=== PATIENT | male | born 1965 | race Caucasian/White ===

== ENCOUNTER 2018-04-28 22:21 | Observation (INO) | payer OTHER ==
[2018-04-28] MEDS ORDERED: IBUPROFEN 600 MG TAB PO STA (23:13)
[2018-04-28] MEDS ORDERED: PIPERACILLIN-TAZOBACTAM 3.375 GM in SODIUM CHLORIDE 0.9% 100 ML IVPB STA (23:13)
[2018-04-28] MEDS ORDERED: ACETAMINOPHEN TAB 500 MG TAB PO STA (23:13)
--- NOTE | 2018-04-28 23:56 | ED ---
Skin/Abscess/FB HPI - General Source: patient, RN notes reviewed, old records reviewed Mode of arrival: ambulatory Limitations: no limitations <Rosaura Espinal - Last Filed: 04/29/18 02:24> <Lauren Tsai - Last Filed: 04/29/18 03:35> - General Chief complaint: Skin/Abscess/Foreign Body Stated complaint: bug bite on leg, fever Time Seen by Provider: 04/28/18 23:00 - History of Present Illness Initial comments: Patient is a 53 year old male presents to ED with CC of 4 days left leg pain, swelling and fever. Patient reports that he started noticed this area on Thursday. He states that he thought it was initially complaining attempt to squeeze it. Some pus was removed. He states that over the past few days he's had fevers and felt very fatigued. He states that he's noticed increased swelling. No history of MRSA. He is here with his fiance with a similar lesion on her groin as well. Patient reports that he has a history of chronic pain. (Rosaura Espinal) - Related Data Home Medications Medication Instructions Recorded Confirmed Acetaminophen Tab [Tylenol Tab] 1,000 mg PO Q6HR PRN 04/28/18 04/28/18 HYDROcodone/APAP 7.5-325MG [[place] 1 tab PO TID PRN 04/28/18 04/28/18 7.5-325] Omeprazole 20 mg PO DAILY 04/28/18 04/28/18 Allergies Allergy/AdvReac Type Severity Reaction Status Date / Time No Known Allergies Allergy Verified 04/28/18 22:56 Review of Systems ROS Other: All systems not noted in ROS Statement are negative. <Rosaura Espinal - Last Filed: 04/29/18 02:24> ROS Other: All systems not noted in ROS Statement are negative. <Lauren Tsai P - Last Filed: 04/29/18 03:35> ROS Statement: Those systems with pertinent positive or pertinent negative responses have been documented in the HPI. 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 History of Any Multi-Drug Resistant Organisms: None Reported Past Surgical History: Orthopedic Surgery Additional Past Surgical History / Comment(s): bilateal shoulder; right knee Past Psychological History: No Psychological Hx Reported Smoking Status: Current every day smoker Past Alcohol Use History: Rare Past Drug Use History: None Reported <Rosaura Espianl - Last Filed: 04/29/18 02:24> General Exam Limitations: no limitations General appearance: alert, in no apparent distress Head exam: Present: atraumatic, normocephalic, normal inspection Eye exam: Present: normal appearance, PERRL, EOMI. Absent: scleral icterus, conjunctival injection, periorbital swelling ENT exam: Present: normal exam, mucous membranes moist Neck exam: Present: normal inspection. Absent: tenderness, meningismus, lymphadenopathy Respiratory exam: Present: normal lung sounds bilaterally. Absent: respiratory distress, wheezes, rales, rhonchi, stridor Cardiovascular Exam: Present: regular rate, normal rhythm, normal heart sounds. Absent: systolic murmur, diastolic murmur, rubs, gallop, clicks GI/Abdominal exam: Present: soft, normal bowel sounds. Absent: distended, tenderness, guarding, rebound, rigid Extremities exam: Present: full ROM, normal capillary refill. Absent: normal inspection, tenderness, pedal edema, joint swelling, calf tenderness Left Upper Leg exam: Present: tenderness, swelling (erythema, abscess over medial thigh. ), ecchymosis (Patient has bruising over the medial thigh extending to the knee.), erythema (10 cm x 15 cm area of cellulitis over the upper thigh.). Absent: normal inspection Knee exam: Present: normal inspection, full ROM Back exam: Present: normal inspection <Rosaura Espinal - Last Filed: 04/29/18 02:24> <Lauren Tsai - Last Filed: 04/29/18 03:35> - General Exam Comments Initial Comments: 53-year-old male. Alert and oriented. (Rosaura Espinal) Vital Signs 04/28/18 04/29/18 04/29/18 22:44 01:27 02:30 Temperature 99.2 F 100.5 F H Pulse Rate 118 H 111 H 97 Respiratory 17 18 18 Rate Blood Pressure 128/87 115/74 123/70 O2 Sat by Pulse 96 96 98 Oximetry Medical Decision Making - Lab Data Result diagrams: 04/29/18 00:04 04/29/18 00:04 - Radiology Data Radiology results: report reviewed <Rosaura Espinal - Last Filed: 04/29/18 02:24> - Lab Data Result diagrams: 04/29/18 00:04 04/29/18 00:04 <Lauren Tsai - Last Filed: 04/29/18 03:35> - Medical Decision Making Patient is a 53-year-old male, presents today with an abscess over the right anterior thigh. Has been there for the past 4 days. He has an area of ecchymosis extending into the lower thigh towards the knee. He has a 10 cm x 15 cm area of cellulitis with a central abscess. I did complete a Doppler ultrasound which was negative for DVT due to the extensive ecchymosis of 5. Patient white blood cell count was elevated at 18,000 with left shift of 14, 000. He has no history of MRSA. His fiance is being treated for a similar skin infection at this time. Patient was hesitant about admission due to having to miss his work. Patient eventually did agree for admission. Incision and drainage was completed. Patient started on Zosyn and vancomycin. Continue to have fever 100.5 despite 2 L bolus and Tylenol. Patient does meet sepsis criteria. (Rosaura Espinal) I personally saw and examined the patient. I reviewed and agree with the mid- level provider findings including all diagnostic interpretations and treatment plans as written unless otherwise stated. Patient care was discussed with admitting physician Dr. Pozo who agrees to admission for IV antibiotics. (Lauren Tsai) - Lab Data Lab Results 04/29/18 04/29/18 04/29/18 Range/Units 00:04 00:04 00:04 WBC 18.2 H (3.8-10.6) k/uL RBC 4.78 (4.30-5.90) m/uL Hgb 14.6 (13.0-17.5) gm/dL Hct 44.3 (39.0-53.0) % MCV 92.6 (80.0-100.0) fL MCH 30.5 (25.0-35.0) pg MCHC 32.9 (31.0-37.0) g/dL RDW 12.9 (11.5-15.5) % Plt Count 196 (150-450) k/uL Neutrophils % 79 % Lymphocytes % 9 % Monocytes % 5 % Eosinophils % 5 % Basophils % 0 % Neutrophils # 14.4 H (1.3-7.7) k/uL Lymphocytes # 1.7 (1.0-4.8) k/uL Monocytes # 0.9 (0-1.0) k/uL Eosinophils # 0.9 H (0-0.7) k/uL Basophils # 0.0 (0-0.2) k/uL PT (9.0-12.0) sec INR (<1.2) APTT (22.0-30.0) sec Sodium 137 (137-145) mmol/L Potassium 4.5 (3.5-5.1) mmol/L Chloride 104 (98-107) mmol/L Carbon Dioxide 24 (22-30) mmol/L Anion Gap 9 mmol/L BUN 16 (9-20) mg/dL Creatinine 0.91 (0.66-1.25) mg/dL Est GFR (CKD-EPI)AfAm >90 (>60 ml/min/1.73 sqM) Est GFR (CKD-EPI)NonAf >90 (>60 ml/min/1.73 sqM) Glucose 114 H (74-99) mg/dL Plasma Lactic Acid Josue 1.3 (0.7-2.0) mmol/L Calcium 9.1 (8.4-10.2) mg/dL Total Bilirubin 0.4 (0.2-1.3) mg/dL AST 21 (17-59) U/L ALT 28 (21-72) U/L Alkaline Phosphatase 72 (38-126) U/L Total Protein 6.5 (6.3-8.2) g/dL Albumin 3.6 (3.5-5.0) g/dL Urine Color Urine Appearance (Clear) Urine pH (5.0-8.0) Ur Specific [place] (1.001-1.035) Urine Protein (Negative) Urine Glucose (UA) (Negative) Urine Ketones (Negative) Urine Blood (Negative) Urine Nitrite (Negative) Urine Bilirubin (Negative) Urine Urobilinogen (<2.0) mg/dL Ur Leukocyte Esterase (Negative) 04/29/18 04/29/18 Range/Units 00:04 00:04 WBC (3.8-10.6) k/uL RBC (4.30-5.90) m/uL Hgb (13.0-17.5) gm/dL Hct (39.0-53.0) % MCV (80.0-100.0) fL MCH (25.0-35.0) pg MCHC (31.0-37.0) g/dL RDW (11.5-15.5) % Plt Count (150-450) k/uL Neutrophils % % Lymphocytes % % Monocytes % % Eosinophils % % Basophils % % Neutrophils # (1.3-7.7) k/uL Lymphocytes # (1.0-4.8) k/uL Monocytes # (0-1.0) k/uL Eosinophils # (0-0.7) k/uL Basophils # (0-0.2) k/uL PT 9.8 (9.0-12.0) sec INR 0.9 (<1.2) APTT 24.3 (22.0-30.0) sec Sodium (137-145) mmol/L Potassium (3.5-5.1) mmol/L Chloride (98-107) mmol/L Carbon Dioxide (22-30) mmol/L Anion Gap mmol/L BUN (9-20) mg/dL Creatinine (0.66-1.25) mg/dL Est GFR (CKD-EPI)AfAm (>60 ml/min/1.73 sqM) Est GFR (CKD-EPI)NonAf (>60 ml/min/1.73 sqM) Glucose (74-99) mg/dL Plasma Lactic Acid Josue (0.7-2.0) mmol/L Calcium (8.4-10.2) mg/dL Total Bilirubin (0.2-1.3) mg/dL AST (17-59) U/L ALT (21-72) U/L Alkaline Phosphatase (38-126) U/L Total Protein (6.3-8.2) g/dL Albumin (3.5-5.0) g/dL Urine Color Yellow Urine Appearance Clear (Clear) Urine pH 6.0 (5.0-8.0) Ur Specific [place] 1.023 (1.001-1.035) Urine Protein Trace H (Negative) Urine Glucose (UA) Negative (Negative) Urine Ketones Negative (Negative) Urine Blood Negative (Negative) Urine Nitrite Negative (Negative) Urine Bilirubin Negative (Negative) Urine Urobilinogen 2.0 (<2.0) mg/dL Ur Leukocyte Esterase Negative (Negative) - Radiology Data No evidence of DVT in the left leg. There is an elongated fluid collection with subcutaneous upper thigh measuring 4 x 1 cm that could be abscess. ( Rosaura Espinal) Disposition Is patient prescribed a controlled substance at d/c from ED?: No Time of Disposition: 02:28 <Rosaura Espinal - Last Filed: 04/29/18 02:24> <Lauren Tsai - Last Filed: 04/29/18 03:35> Clinical Impression: Sepsis, Cellulitis of right leg Disposition: ADMITTED IP TO THIS HOSP Condition: Good Addendum entered and electronically signed by Rosaura Espinal PA-C 04/29/18 02 :29: Addendum to clinical impression. Patient has cellulitis of the left leg.
[2018-04-29] MEDS: SODIUM CHLORIDE 0.9% 500 ML 500 ML IV SCH ×2 (00:01→00:02)
[2018-04-29 00:42] LABS: Basophils % (A) 0 %; Eosinophils # (A) 0.9 k/uL (0-0.7); Eosinophils % (A) 5 %; HCT 44.3 % (39.0-53.0); HGB 14.6 gm/dL (13.0-17.5); Lymphocytes # (A) 1.7 k/uL (1.0-4.8); Lymphocytes % (A) 9 %; MCH 30.5 pg (25.0-35.0); MCHC 32.9 g/dL (31.0-37.0); MCV 92.6 fL (80.0-100.0); Mean Platelet Volume 7.2; Monocytes # (A) 0.9 k/uL (0-1.0); Monocytes % (A) 5 %; Neutrophils # (A) 14.4 k/uL (1.3-7.7); Neutrophils % (A) 79 %; Platelet Count 196 k/uL (150-450); RBC 4.78 m/uL (4.30-5.90); RDW 12.9 % (11.5-15.5); WBC 18.2 k/uL (3.8-10.6)
[2018-04-29 00:43] LABS: Appearance,Urine Clear (Clear); Bilirubin,Urine Negative (Negative); Blood,Urine Negative (Negative); Color,Urine Yellow; Glucose,Urine (UA) Negative (Negative); Ketones,Urine Negative (Negative); Leukocyte Esterase,Urine Negative (Negative); Nitrite,Urine Negative (Negative); Protein,Urine Trace (Negative); Specific Gravity,Urine 1.023 (1.001-1.035)
[2018-04-29 00:47] LABS: INR 0.9 (<1.2); Partial Thromboplastin Time 24.3 sec (22.0-30.0); Prothrombin Time 9.8 sec (9.0-12.0)
--- NOTE | 2018-04-29 00:57 | US ---
EXAMINATION TYPE: US venous doppler duplex LE LT DATE OF EXAM: 04/29/2018 12:46 AM COMPARISON: NONE CLINICAL HISTORY: Pain. Pain and redness. SIDE PERFORMED: Left TECHNIQUE: The lower extremity deep venous system is examined utilizing real time linear array sonog kuldeep with graded compression, doppler sonography and color-flow sonography. VESSELS IMAGED: External Iliac Vein (EIV) Common Femoral Vein Deep Femoral Vein Greater Saphenous Vein * Femoral Vein Popliteal Vein Small Saphenous Vein * Proximal Calf Veins (* superficial vessels) Left Leg: Negative for DVT No evidence of DVT left leg. Complex fluid pocket in area of redness high thigh. IMPRESSION: There is no evidence of deep venous thrombosis in the right leg. There is elongated complex fluid collection in the subcutaneous upper thigh that measures 4 x 1 cm th at could relate to abscess.
[2018-04-29 00:58] LABS: Albumin 3.6 g/dL (3.5-5.0); Anion Gap 9 mmol/L; Blood Urea Nitrogen 16 mg/dL (9-20); Calcium 9.1 mg/dL (8.4-10.2); Carbon Dioxide 24 mmol/L (22-30); Chloride 104 mmol/L (98-107); Glucose 114 mg/dL (74-99); Sodium 137 mmol/L (137-145); Total Bilirubin 0.4 mg/dL (0.2-1.3); Total Protein 6.5 g/dL (6.3-8.2)
[2018-04-29 01:06] LABS: ALT 28 U/L (21-72); AST 21 U/L (17-59); Alkaline Phosphatase 72 U/L (38-126); Potassium 4.5 mmol/L (3.5-5.1)
[2018-04-29] MEDS ORDERED: VANCOMYCIN IV PER PHARMACY 1 EACH MISC MISCELLANE PRN (01:37)
[2018-04-29] MEDS ORDERED: ACETAMINOPHEN TAB 500 MG TAB PO PRN (01:44)
[2018-04-29] MEDS ORDERED: NICOTINE 21MG/24HR PATCH TRANSDERM STA (02:15)
[2018-04-29] MEDS ORDERED: NALOXONE 0.4 MG/ML 1 ML VIAL IV PRN (02:28)
[2018-04-29] MEDS ORDERED: VANCOMYCIN 1,500 MG in SODIUM CHLORIDE 0.9% 250 ML IVPB ONE (02:30)
[2018-04-29] MEDS: HYDROcodone/APAP 7.5-325MG 1 EACH TAB PO PRN ×3 (03:26→20:03)
[2018-04-29 03:40] VITALS: BMI 26.7
--- NOTE | 2018-04-29 07:00 | P.HPIM ---
History of Present Illness H&P Date: 04/29/18 Chief Complaint: Left thigh pain and redness 53-year-old male with history of obstructive sleep apnea. Patient presents to the hospital with 4 day history of left thigh pain and redness. He recalls possible insect bite 3-4 days ago, which woke him up from sleep he try to clean it squeezes it. But then later noticed that it continued to hurt him and started to become red and redness area was getting larger he was taking some leftover antibiotics from when one of the kids was sick. He reports fevers at home ranging in 101-102. He tried to fight off but felt he needs to come the hospital yesterday as it was getting significantly swollen and warm to the touch along with some tenderness and he felt that there is some collection under the skin and the need medical attention. Otherwise he denies any chest pain trouble breathing abdominal pain nausea vomiting changes in his bowel or urinary habits. Denies any GI bleeding or any focal neurologic deficits. He describes his health to be very good. He started a new job and he is only working Thursday and he was eager to go home. Review of Systems Pertinent positives as noted in HPI. All other systems were reviewed and are negative 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, narcolepsy. History of Any Multi-Drug Resistant Organisms: None Reported Past Surgical History: Orthopedic Surgery Additional Past Surgical History / Comment(s): bilateal shoulder; right knee Past Anesthesia/Blood Transfusion Reactions: No Reported Reaction Past Psychological History: No Psychological Hx Reported Smoking Status: Current every day smoker Past Alcohol Use History: Rare Past Drug Use History: None Reported - Past Family History Father Family Medical History: Diabetes Mellitus Mother Family Medical History: No Reported History Medications and Allergies Home Medications Medication Instructions Recorded Confirmed Type Acetaminophen Tab [Tylenol Tab] 1,000 mg PO Q6HR PRN 04/28/18 04/28/18 History HYDROcodone/APAP 7.5-325MG [[place] 1 tab PO TID PRN 04/28/18 04/28/18 History 7.5-325] Omeprazole 20 mg PO DAILY 04/28/18 04/28/18 History Allergies Allergy/AdvReac Type Severity Reaction Status Date / Time No Known Allergies Allergy Verified 04/28/18 22:56 Physical Exam Vitals: Vital Signs Temp Pulse Pulse Resp BP BP Pulse Ox 04/29/18 03:40 99.5 F 95 18 103/72 93 L 04/29/18 02:30 97 18 123/70 98 04/29/18 01:27 100.5 F H 111 H 18 115/74 96 04/28/18 22:44 99.2 F 118 H 17 128/87 96 Intake and Output 04/28/18 04/28/18 04/29/18 14:59 22:59 06:59 Intake Total 240 Balance 240 Intake: Oral 240 Other: Weight 91.898 kg 91.898 kg Constitutional: No acute distress, conversant, pleasant Eyes: Anicteric sclerae, moist conjunctiva, no lid-lag Pupils equal round reactive to light ENMT: NC/AT Oropharynx clear, no erythema, exudates Neck: Supple, FROM, no masses, or JVD No carotid bruits No thyromegaly Lungs: Clear to auscultation Clear to percussion Normal respiratory effort, no accessory muscle use Cardiovascular: Heart regular in rate and rhythm, No murmurs, gallops, or rubs No peripheral edema Abdominal: Soft Nontender, no guarding, rebound or rigidity Abdomen moving with respiration Normoactive bowel sounds No hepatomegaly, No splenomegaly No palpable mass No abdominal wall hernia noted Skin: Left thigh with large area of erythema, warmth to the touch, tenderness to palpation over the anterior mid thigh where there is area of induration. Normal tone, texture, turgor No subcutaneous nodules No ulcers Extremities: No digital cyanosis No clubbing Pedal pulses intact and symmetrical Radial pulses intact and symmetrical No calf tenderness Psychiatric: Alert and oriented to person, place and time Appropriate affect fair judgment Neuro Muscles Strength 5/5 in all 4 extremities Sensation to light touch grossly present throughout Cranial nerves II-XII grossly intact No focal sensory deficits Lymphatics: no palpable cervical or supraclavicular , or inguinal lymph nodes Results CBC & Chem 7: 04/29/18 00:04 04/29/18 00:04 Labs: Abnormal Lab Results - Last 24 Hours (Table) 04/29/18 04/29/18 04/29/18 Range/Units 00:04 00:04 00:04 WBC 18.2 H (3.8-10.6) k/uL Neutrophils # 14.4 H (1.3-7.7) k/uL Eosinophils # 0.9 H (0-0.7) k/uL Glucose 114 H (74-99) mg/dL Urine Protein Trace H (Negative) Thrombosis Risk Factor Assmnt - Choose All That Apply Any of the Below Risk Factors Present?: Yes Each Factor Represents 1 point: Age 41-60 years, Obesity (BMI >25) Other Risk Factors: No Other congenital or acquired thrombophilia - If yes, enter type in comment: No Thrombosis Risk Factor Assessment Total Risk Factor Score: 2 Thrombosis Risk Factor Assessment Level: Low Risk Assessment and Plan Assessment: 53-year-old male with history of obstructive sleep apnea admitted as inpatient with anticipated length of stay more than 48 hours due to sepsis and cellulitis of left thigh. Patient presented with 4 day history of left leg swelling and pain. Plan: sepsis 2/2 cellulitis and abscess of left thigh Vancomycin Status post I&D Surgery consult Pain control IV fluid hydration and saline Tobacco smoking Counseled to quit Nicotine replacement therapy Chronic low back pain continue with pain control Juan Surrogate decision-maker: Cathy patient girlfriend CODE STATUS: Full code Discussed with: Patient, ER, RN Anticipated discharge: 48-[address]: Home A total of 60 minutes was spent on the care of this complex patient more than 50 % of the time was spent in counseling and care coordination.
[2018-04-29] MEDS: PANTOPRAZOLE 40 MG TABLET PO SCH (08:27)
[2018-04-29] MEDS: HEPARIN SODIUM,PORCINE 5,000 UNIT/ML 1 ML VIAL SQ SCH ×3 (08:27→20:05)
[2018-04-29] MEDS: SODIUM CHLORIDE 0.9% 1,000 ML IV SCH ×3 (08:27→20:04)
[2018-04-29] MEDS ORDERED: LIDOCAINE 1% INJ 10MG/ML (20 ML MDV) SQ ONE (13:21)
--- NOTE | 2018-04-29 13:25 | P.PN ---
Progress Note - Text Progress Note Date: 04/29/18 53-year-old male with past medical history of LAURO presents to the ED for left thigh pain and swelling with redness. He is admitted for cellulitis of the left lower extremity. Incision and drainage was performed in the ED, admitted for IV antibiotics and hemodynamic support. Patient seen and examined. No acute events overnight. Patient reports improvement in his left thigh pain. Improved swelling and erythema as well. Patient denies any fever, chest pain, shortness of breath or palpitations. States he would like to go back to work tomorrow. General: [no distress], [appears at stated age] Derm: [warm], [dry] Head: [atraumatic], [normocephalic], [symmetric] Eyes: [EOMI], [no lid lag], [anicteric sclera] Mouth: [no lip lesion], [mucus membranes moist] Cardiovascular: [S1S2 reg], [no murmur], [positive posterior tibial pulse bilateral], Lungs: [CTA bilateral], [no rhonchi, no rales] , [no accessory muscle use] Abdominal: [soft], [ nontender to palpation], [no guarding], [no appreciable organomegaly] Ext: [no gross muscle atrophy], [no edema], [no contractures] Neuro: [no focal neuro deficits] Psych: [Alert], [oriented], [appropriate affect] Assessment and Plan 1. Cellultis of the LLE: Concerns for sepsis on admission (Leukocytosis, Fever, HR > 100 with source of infection). Lactic acid is within normal limits. Duplex of the lower extremity ruled out DVT. Pain management with Tylenol, [place] PRN. Continue Vancomycin 1500 mg IV BID. FU Gen Sx, Blood Cx, Wound Cx 2. LAURO: Stable. BiPAP QHS. 3. DVT/GI Prophylaxis: Heparin 5000 units SUBCUT TID, Protonix 40 mg PO QAM.
--- NOTE | 2018-04-29 13:35 | P.GSCN ---
History of Present Illness Consult date: 04/29/18 Reason for Consult: Left thigh abscess History of present illness: Patient came to the ER with complaints of increasing pain in the left proximal thigh anteriorly. He noticed a small bump there that gradually became more red and more painful. He had an ultrasound showing a 1 x 4 cm abscess. This was lanced in the ER. Despite that the patient is still having discomfort however. T-max 100.5. White blood cell count 18. We were consulted for evaluation. Review of Systems The patient denies any acute changes in vision or hearing, no dysphagia or odynophagia, no chest pain or shortness of breath, no dysuria or hematuria, no headache, no runny nose, no rectal bleeding or melena, no unexplained weight loss 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, narcolepsy. History of Any Multi-Drug Resistant Organisms: None Reported Past Surgical History: Orthopedic Surgery Additional Past Surgical History / Comment(s): bilateal shoulder; right knee Past Anesthesia/Blood Transfusion Reactions: No Reported Reaction Past Psychological History: No Psychological Hx Reported Smoking Status: Current every day smoker Past Alcohol Use History: Rare Past Drug Use History: None Reported - Past Family History Father Family Medical History: Diabetes Mellitus Mother Family Medical History: No Reported History Medications and Allergies Home Medications Medication Instructions Recorded Confirmed Type Acetaminophen Tab [Tylenol Tab] 1,000 mg PO Q6HR PRN 04/28/18 04/28/18 History HYDROcodone/APAP 7.5-325MG [[place] 1 tab PO TID PRN 04/28/18 04/28/18 History 7.5-325] Omeprazole 20 mg PO DAILY 04/28/18 04/28/18 History Allergies Allergy/AdvReac Type Severity Reaction Status Date / Time No Known Allergies Allergy Verified 04/28/18 22:56 Surgical - Exam Vital Signs Temp Pulse Resp BP Pulse Ox 99.2 F 118 H 17 128/87 96 04/28/18 22:44 04/28/18 22:44 04/28/18 22:44 04/28/18 22:44 04/28/18 22:44 Physical exam: General: Well-developed, well-nourished HEENT: Normocephalic, sclerae nonicteric Abdomen: Nontender, nondistended Extremities: Area of erythema involving most of the proximal anterior left thigh , area of fluctuance measuring 1 x 2.5 cm with small wound from recent [place]. The wound is closed over. Mild tenderness Neuro: Alert and oriented Results - Labs 04/29/18 00:04 04/29/18 00:04 Abnormal Lab Results - Last 24 Hours (Table) 04/29/18 04/29/18 04/29/18 Range/Units 00:04 00:04 00:04 WBC 18.2 H (3.8-10.6) k/uL Neutrophils # 14.4 H (1.3-7.7) k/uL Eosinophils # 0.9 H (0-0.7) k/uL Glucose 114 H (74-99) mg/dL Urine Protein Trace H (Negative) Microbiology - Last 24 Hours (Table) 04/29/18 02:51 Wound Culture - Preliminary Leg - Left Diabetes panel 04/29/18 Range/Units 00:04 Sodium 137 (137-145) mmol/L Potassium 4.5 (3.5-5.1) mmol/L Chloride 104 (98-107) mmol/L Carbon Dioxide 24 (22-30) mmol/L BUN 16 (9-20) mg/dL Creatinine 0.91 (0.66-1.25) mg/dL Glucose 114 H (74-99) mg/dL Calcium 9.1 (8.4-10.2) mg/dL AST 21 (17-59) U/L ALT 28 (21-72) U/L Alkaline Phosphatase 72 (38-126) U/L Total Protein 6.5 (6.3-8.2) g/dL Albumin 3.6 (3.5-5.0) g/dL Calcium panel 04/29/18 Range/Units 00:04 Calcium 9.1 (8.4-10.2) mg/dL Albumin 3.6 (3.5-5.0) g/dL Pituitary panel 04/29/18 Range/Units 00:04 Sodium 137 (137-145) mmol/L Potassium 4.5 (3.5-5.1) mmol/L Chloride 104 (98-107) mmol/L Carbon Dioxide 24 (22-30) mmol/L BUN 16 (9-20) mg/dL Creatinine 0.91 (0.66-1.25) mg/dL Glucose 114 H (74-99) mg/dL Calcium 9.1 (8.4-10.2) mg/dL Adrenal panel 04/29/18 Range/Units 00:04 Sodium 137 (137-145) mmol/L Potassium 4.5 (3.5-5.1) mmol/L Chloride 104 (98-107) mmol/L Carbon Dioxide 24 (22-30) mmol/L BUN 16 (9-20) mg/dL Creatinine 0.91 (0.66-1.25) mg/dL Glucose 114 H (74-99) mg/dL Calcium 9.1 (8.4-10.2) mg/dL Total Bilirubin 0.4 (0.2-1.3) mg/dL AST 21 (17-59) U/L ALT 28 (21-72) U/L Alkaline Phosphatase 72 (38-126) U/L Total Protein 6.5 (6.3-8.2) g/dL Albumin 3.6 (3.5-5.0) g/dL Assessment and Plan (1) Abscess of left thigh Narrative/Plan: Options discussed with the patient. We'll proceed with bedside incision and drainage. I suspect additional fluid requires evacuation. Risks of bleeding, infection, wound formation reviewed. He agrees and wishes to proceed. Current Visit: Yes Status: Acute Code(s): L02.416 - CUTANEOUS ABSCESS OF LEFT LOWER LIMB SNOMED Code(s): 7028970
[2018-04-29] MEDS: VANCOMYCIN 1,500 MG in SODIUM CHLORIDE 0.9% 250 ML IVPB SCH (14:07)
[2018-04-29] MEDS ORDERED: HYDROmorphone 1 MG/ML 1 ML SYRINGE IVP STA (17:00)
--- NOTE | 2018-04-29 17:38 | P.PCN ---
Date of Procedure: 04/29/18 Procedure(s) Performed: PREOPERATIVE DIAGNOSIS: Left thigh abscess POSTOPERATIVE DIAGNOSIS: Same PROCEDURE: Incision and drainage left thigh abscess SURGEON: Deandre EBL: 1 mL ANESTHESIA: Local COMPLICATIONS: None OPERATIVE PROCEDURE: Patient kept in the room for the procedure. Left thigh prepped with ChloraPrep. Skin localized with lidocaine. Small elliptical incision was made encompassing the previous wound site and the skin overlying the fluctuant area. Entrance into an abscess cavity measuring 3 x 1 cm performed. Purulent fluid evacuated. Wound irrigated. Wound packed with iodoform gauze. Sterile dressing applied. DISPOSITION: Stable
[2018-04-30] MEDS: KETOROLAC 30 MG/ML 1 ML VIAL IVP PRN ×2 (00:06→07:31)
[2018-04-30] MEDS: VANCOMYCIN 1,500 MG in SODIUM CHLORIDE 0.9% 250 ML IVPB SCH ×2 (01:47→15:16)
[2018-04-30] MEDS: SODIUM CHLORIDE 0.9% 1,000 ML IV SCH ×3 (01:48→16:47)
[2018-04-30] MEDS: HYDROcodone/APAP 7.5-325MG 1 EACH TAB PO PRN ×3 (03:23→19:19)
[2018-04-30 07:45] LABS: Basophils % (A) 0 %; Eosinophils % (A) 8 %; HCT 40.4 % (39.0-53.0); HGB 13.6 gm/dL (13.0-17.5); Lymphocytes % (A) 17 %; MCH 31.7 pg (25.0-35.0); MCHC 33.8 g/dL (31.0-37.0); MCV 93.7 fL (80.0-100.0); Monocytes # (A) 0.7 k/uL (0-1.0); Monocytes % (A) 6 %; Neutrophils # (A) 7.9 k/uL (1.3-7.7); Neutrophils % (A) 67 %; Platelet Count 203 k/uL (150-450); RBC 4.31 m/uL (4.30-5.90); RDW 12.7 % (11.5-15.5); WBC 11.8 k/uL (3.8-10.6)
--- NOTE | 2018-04-30 08:09 | P.PN ---
Subjective Progress Note Date: 04/30/18 Principal diagnosis: Cellulitis, abscess Patient seen and examined. No acute events overnight. Left medial thigh abscess, cellulitis I&D by general surgery yesterday. Patient denies any fever or chills. Looking forward to going, states that his work. Denies any chest pain shortness breath or palpitations. Pain is well-controlled with current medications. Objective - Vital Signs Vital signs: Vital Signs Temp 99.1 F 04/30/18 06:57 Pulse 92 04/30/18 06:57 Resp 16 04/30/18 06:57 BP 113/75 04/30/18 06:57 Pulse Ox 99 04/30/18 06:57 Intake & Output 04/29/18 04/30/18 04/30/18 18:59 06:59 18:59 Intake Total 700 1875 Balance 700 1875 Weight 91.898 kg Intake: Intake, IV Titration 300 1875 Amount Sodium Chloride 0.9% 1, 300 1875 000 ml @ 150 mls/hr IV . Q6H40M COUNTS INCLUDE 234 BEDS AT THE [facility] Rx#:[id number] Oral 400 Other: Voiding Method Toilet # Voids 2 - Exam General: [no distress], [appears at stated age] Derm: [warm], [dry] Head: [atraumatic], [normocephalic], [symmetric] Eyes: [EOMI], [no lid lag], [anicteric sclera] Mouth: [no lip lesion], [mucus membranes moist] Cardiovascular: [S1S2 reg], [no murmur], [positive posterior tibial pulse bilateral], Lungs: [CTA bilateral], [no rhonchi, no rales] , [no accessory muscle use] Abdominal: [soft], [ nontender to palpation], [no guarding], [no appreciable organomegaly], [no inguinal adenopathy.] Ext: [no gross muscle atrophy], [no edema], [left medial thigh erythema and swelling, improved from yesterday. Left medial thigh wound packed. Dressings clean, dry and intact.] Neuro: [no focal neuro deficits] Psych: [Alert], [oriented], [appropriate affect] - Labs CBC & Chem 7: 04/30/18 07:13 04/29/18 00:04 Labs: Abnormal Lab Results - Last 24 Hours (Table) 04/30/18 Range/Units 07:13 WBC 11.8 H (3.8-10.6) k/uL Neutrophils # 7.9 H (1.3-7.7) k/uL Eosinophils # 1.0 H (0-0.7) k/uL Microbiology - Last 24 Hours (Table) 04/29/18 00:04 Blood Culture - Preliminary Blood No Growth after 24 hours 04/29/18 02:51 Gram Stain - Preliminary Leg - Left Wound Culture - Preliminary Assessment and Plan Assessment: Assessment and Plan 1. Cellultis of the LLE with abscess: Concerns for sepsis on admission ( Leukocytosis, Fever, HR > 100 with source of infection). Lactic acid is within normal limits. Duplex of the lower extremity ruled out DVT. Pain management with Tylenol, [place] PRN. Continue Vancomycin 1500 mg IV BID. General Sx consulted, performed I&D. Blood Cx and Wound Cx preliminary negative at 24H. FU Gen Sx, Blood Cx, Wound Cx 2. LAURO: Stable. BiPAP QHS. 3. DVT/GI Prophylaxis: Heparin 5000 units SUBCUT TID, Protonix 40 mg PO QAM. Patient is looking forward to going home. Leukocytosis has come down from 18.2 2.8. T-max 100.1F around 2 PM yesterday. Advised patient that he would benefit from at least 1 more day of IV antibiotics. Possible discharge in the evening or tomorrow morning. We'll follow surgery recommendations.
[2018-04-30] MEDS ORDERED: NICOTINE 21MG/24HR PATCH TRANSDERM STA (08:14)
[2018-04-30] MEDS: HEPARIN SODIUM,PORCINE 5,000 UNIT/ML 1 ML VIAL SQ SCH ×2 (08:25→15:43)
[2018-04-30] MEDS: PANTOPRAZOLE 40 MG TABLET PO SCH (08:30)
[2018-04-30] MEDS ORDERED: HYDROmorphone 1 MG/ML 1 ML SYRINGE IVP STA (16:13)
[2018-04-30 19:06] VITALS: BP 122/77; PULSE 101; RESP 16; TEMP 98.5
[2018-05-01] MEDS ORDERED: VANCOMYCIN TROUGH DUE 1 EACH MISC MISCELLANE ONE (01:00)
== END 2018-04-30 19:58 | disposition home or self-care (01) ==
LOC: EC 22:21 → 4SSUR 04-29 02:28 → INTOOBSV 04-29 02:28 → UNDODISIN 04-30 19:58
PROVIDERS: ADMIT Internal Medicine; ATTEND Internal Medicine
PROC: 0H9JXZZ Drainage of Left Upper Leg Skin, External Approach (ICD-10-PCS; principal; 2018-04-29)
DX: A41.9 Sepsis, unspecified organism (principal); L03.116 Cellulitis of left lower limb; B95.62 Methicillin resistant Staphylococcus aureus infection as the cause of diseases classified elsewhere; F17.200 Nicotine dependence, unspecified, uncomplicated; M54.5 Low back pain; G89.29 Other chronic pain; G47.33 Obstructive sleep apnea (adult) (pediatric); Z99.89 Dependence on other enabling machines and devices; Z79.899 Other long term (current) drug therapy; Z83.3 Family history of diabetes mellitus; E66.9 Obesity, unspecified; Z68.26 Body mass index [BMI] 26.0-26.9, adult
CPT/HCPCS: 10060; 96376; 96361; 96366 ×3; 96375 ×2; 96368; 96365; 99285; 36415; 80053; 83605; 85025 ×2; 85610; 85730; 81003; 87040; 87070; 87205; 87077; 87186; 93971; G0378 ×2; S4990 ×2; J2543; J3370 ×2; J1885; J1170 ×2